=== PATIENT | male | born 1965 | race Caucasian/White ===

== ENCOUNTER 2017-11-18 14:11 | Emergency (ER) | payer BC ==
[2017-11-18] MEDS ORDERED: NS 1,000 ML IV ONE (14:31)
--- NOTE | 2017-11-18 14:41 | EDPHY ---
H & P Stated Complaint: AMS THIS AM, NOW RESOLVED Time Seen by Provider: 11/18/17 14:20 HPI/ROS: CHIEF COMPLAINT: Altered mental status HISTORY OF PRESENT ILLNESS: Patient is a 52-year-old man with a history of alcoholism who's family brings him to the emergency department for altered mental status. He showed up late to the basketball game and did not realize what time it was. He told his family that he was leaning to the left when he was trying to walk and thought he might be having a stroke. states that his gait today is normal. He did seem confused however to her at triage inside always such as asking where other family members were even though he already knew. He denies any headache, chest pain or shortness of breath. No recent trauma. He denies any recent alcohol ingestion within the last several months. 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 No focal weakness or deficits. No slurred speech. REVIEW OF SYSTEMS: Constitutional: denies: chills, fever, recent illness, recent injury EENTM: denies: blurred vision, double vision, nose congestion Respiratory: denies: cough, shortness of breath Cardiac: denies: chest pain, irregular heart rate, lightheadedness, palpitations Gastrointestinal/Abdominal: denies: abdominal pain, diarrhea, nausea, vomiting, blood streaked stools Genitourinary: denies: dysuria, frequency, hematuria, pain Musculoskeletal: denies: joint pain, muscle pain Skin: denies: lesions, rash, jaundice, bruising Neurological: denies: headache, numbness, paresthesia, tingling, dizziness, weakness Hematologic/Lymphatic: denies: blood clots, easy bleeding, easy bruising Immunologic/allergic: denies: HIV/AIDS, transplant EXAM: GENERAL: Well-appearing, well-nourished and in no acute distress. HEAD: Atraumatic, normocephalic. EYES: Pupils equal round and reactive to light, extraocular movements intact, sclera anicteric, conjunctiva are normal. ENT: TMs normal, nares patent, oropharynx clear without exudates. Moist mucous membranes. NECK: Normal range of motion, supple without lymphadenopathy or JVD. LUNGS: Breath sounds clear to auscultation bilaterally and equal. No wheezes rales or rhonchi. HEART: Regular rate and rhythm without murmurs, rubs or gallops. ABDOMEN: Soft, nontender, normoactive bowel sounds. No guarding, no rebound. No masses appreciated. BACK: No CVA tenderness, no spinal tenderness, step-offs or deformities EXTREMITIES: Normal range of motion, no pitting or edema. No clubbing or cyanosis. No asterixis NEUROLOGICAL: Cranial nerves II through XII grossly intact. Normal speech, normal gait. 5/5 strength, normal movement in all extremities, normal sensation NIH stroke score 0, does have a slightly wide-based gait but according to this is baseline for the last several years since his Guillain -[place]. PSYCH: Normal mood, normal affect. SKIN: Warm, dry, normal turgor, no visible rashes or lesions. Source: Patient, Family - Personal History Current Tetanus Diphtheria and Acellular Pertussis (TDAP): Unsure - Medical/Surgical History Hx Asthma: No Hx Chronic Respiratory Disease: No Hx Diabetes: No Hx Cardiac Disease: No Hx Renal Disease: No Hx Cirrhosis: No Hx Alcoholism: No Hx HIV/AIDS: No Hx Splenectomy or Spleen Trauma: No Other PMH: ORTHO SURGERIES, HTN, ALCOHOLISM, ANXIETY - Family History Significant Family History: No pertinent family hx - Social History Smoking Status: Never smoked Alcohol Use: Sober Constitutional: Initial Vital Signs Temperature (C) 36.8 C 11/18/17 14:14 Heart Rate 83 11/18/17 14:14 Respiratory Rate 16 11/18/17 14:14 Blood Pressure 139/97 H 11/18/17 14:14 O2 Sat (%) 92 11/18/17 14:14 O2 Delivery Mode Room Air Allergies/Adverse Reactions: No Known Allergies Allergy (Unverified 01/19/15 18:49) Home Medications: Medication Instructions Recorded Anxiety Medication 11/18/17 Htn Med 11/18/17 traZODone 11/18/17 Medical Decision Making - Diagnostics EKG Interpretation: An EKG obtained and was read and documented in trace view. Please see trace view for full reading and report. Sinus rhythm, no acute ischemic changes ED Course/Re-evaluation: After I left the room the patient admitted to his family that he has been drinking today. We will cancel the imaging studies. 3:40 p.m. We discussed the patient's alcohol level. Will discontinue further studies. I [facility]. He states that he has only been drinking for about 24 hr and should not withdrawal. He has been to rehab before I would like to arrange it on his own. His is here and will take him. Differential Diagnosis: Partial list of the Differential diagnosis considered include but were not limited to; alcohol intoxication, CVA and although unlikely based on the history and physical exam, I also considered seizure, dissection, infection, acute coronary disease, liver disease. I discussed these differential diagnoses and the plan with the patient as well as the usual and expected course. The patient understands that the diagnosis is provisional and that in medicine we are not always correct and that further workup is often warranted. Usual and customary warnings were given. All of the patient's questions were answered. The patient was instructed to return to the emergency department should the symptoms at all worsen or return, otherwise to followup with the physician as we discussed. - Data Points Laboratory Results: Laboratory Results 11/18/17 14:30 11/18/17 14:30 11/18/17 11/18/17 11/18/17 14:30 14:30 14:30 WBC 3.46 10^3/uL L 10^3/uL (3.80-9.50) RBC 4.34 10^6/uL L 10^6/uL (4.40-6.38) Hgb 15.0 g/dL g/dL (13.7-17.5) Hct 43.3 % % (40.0-51.0) MCV 99.8 fL fL (81.5-99.8) MCH 34.6 pg H pg (27.9-34.1) MCHC 34.6 g/dL g/dL (32.4-36.7) RDW 13.4 % % (11.5-15.2) Plt Count 75 10^3/uL L 10^3/uL (150-400) MPV 10.1 fL fL (8.7-11.7) Neut % (Auto) 40.7 % % (39.3-74.2) Lymph % (Auto) 38.2 % % (15.0-45.0) [place] % (Auto) 16.8 % H % (4.5-13.0) Eos % (Auto) 1.7 % % (0.6-7.6) Baso % (Auto) 2.0 % H % (0.3-1.7) Nucleat RBC Rel Count 0.0 % % (0.0-0.2) Absolute Neuts (auto) 1.41 10^3/uL L 10^3/uL (1.70-6.50) Absolute Lymphs (auto) 1.32 10^3/uL 10^3/uL (1.00-3.00) Absolute Monos (auto) 0.58 10^3/uL 10^3/uL (0.30-0.80) Absolute Eos (auto) 0.06 10^3/uL 10^3/uL (0.03-0.40) Absolute Basos (auto) 0.07 10^3/uL 10^3/uL (0.02-0.10) Absolute Nucleated RBC 0.00 10^3/uL 10^3/uL (0-0.01) Immature Gran % 0.6 % % (0.0-1.1) Immature Gran # 0.02 10^3/uL 10^3/uL (0.00-0.10) PT 12.5 SEC SEC (12.0-15.0) INR 0.91 (0.83-1.16) APTT 23.2 SEC SEC (23.0-38.0) Sodium 150 mEq/L H mEq/L (135-145) Potassium 4.1 mEq/L mEq/L (3.3-5.0) Chloride 108 mEq/L mEq/L (97-110) Carbon Dioxide 26 mEq/l mEq/l (22-31) Anion Gap 16 mEq/L mEq/L (8-16) BUN 14 mg/dL mg/dL (7-23) Creatinine 0.8 mg/dL mg/dL (0.7-1.3) Estimated GFR > 60 Glucose 95 mg/dL mg/dL (70-100) Calcium 8.7 mg/dL mg/dL (8.5-10.4) Total Bilirubin 0.7 mg/dL mg/dL (0.1-1.4) Conjugated Bilirubin 0.5 mg/dL mg/dL (0.0-0.5) Unconjugated Bilirubin 0.2 mg/dL mg/dL (0.0-1.1) AST 157 IU/L H IU/L (17-59) ALT 110 IU/L H IU/L (21-72) Alkaline Phosphatase 57 IU/L IU/L (38-126) Total Protein 6.8 g/dL g/dL (6.3-8.2) Albumin 4.4 g/dL g/dL (3.5-5.0) Ethyl Alcohol 414 mg/dL H* mg/dL (0-10) Medications Given: Discontinued Medications Sodium Chloride (Ns) 1,000 mls @ 500 mls/hr IV EDNOW ONE PRN Reason: Protocol Stop: 11/18/17 16:30 Last Admin: 11/18/17 14:39 Dose: 1,000 mls Departure - Departure Disposition: Home, Routine, Self-Care Clinical Impression: Alcohol intoxication Qualifiers: Complication of substance-induced condition: uncomplicated Qualified Code(s): F10.920 - Alcohol use, unspecified with intoxication, uncomplicated Condition: Fair Instructions: Alcohol Intoxication (ED), Alcohol Withdrawal (ED) Additional Instructions: Return to the emergency department if you began to develop any symptoms of withdrawal as we discussed. Referrals: Corey Mtz MD [Primary Care Provider] - As per Instructions
--- NOTE | 2017-11-18 14:43 | CPEKG ---
Heart Rate: 75 RR Interval: 800 P-R Interval: 168 QRSD Interval: 88 QT Interval: 436 QTC Interval: 487 P [place]: 34 QRS [place]: -6 T Wave [place]: 152 EKG Severity - ABNORMAL ECG - EKG Impression: SINUS RHYTHM EKG Impression: NONSPECIFIC T ABNORMALITIES, LATERAL LEADS EKG Impression: BORDERLINE PROLONGED QT INTERVAL Electronically Signed By: Alvarado Nieto 18-Nov-2017 14:56:09
[2017-11-18 14:55] LABS: PLATELET COUNT 75 10^3/uL (150-400)
[2017-11-18 15:03] LABS: INR 0.91 (0.83-1.16); PROTIME(PATIENT) 12.5 SEC (12.0-15.0)
[2017-11-18 15:53] VITALS: BP 120/80
== END 2017-11-18 15:52 | disposition home or self-care (01) ==
DX: F10.920 Alcohol use, unspecified with intoxication, uncomplicated (principal); I10 Essential (primary) hypertension; E86.9 Volume depletion, unspecified
CPT/HCPCS: G0480